=== PATIENT | male | born 1955 | race Caucasian/White ===

== ENCOUNTER → 2016-06-19 | Outpatient (CLI) | payer MEDICARE, MEDICAID ==
[~2016-06-19] MED LIST: DILANTIN 100MG100 MG PO; DILANTIN 50MG C50 MG PO; LASIX 40MG TABL40 MG PO; LORTAB 5/500 501 TAB PO; PHENOBARBITAL 330 MG PO; VENTOLIN0.09 MG IH; WARFARIN PO
== END ==
LOC: WCC 13:00
DX: T81.31XA Disruption of external operation (surgical) wound, not elsewhere classified, initial encounter (principal); G64 Other disorders of peripheral nervous system; Z85.038 Personal history of other malignant neoplasm of large intestine
CPT/HCPCS: 27515; G0463

== ENCOUNTER → 2016-07-03 | Outpatient (CLI) | payer MEDICARE, MEDICAID | LOC: WCC 10:12 | DX: T81.31XA Disruption of external operation (surgical) wound, not elsewhere classified, initial encounter (principal); L84 Corns and callosities | CPT/HCPCS: 17716; 27517; A6207; A6212; G0463 ==

== ENCOUNTER → 2016-08-26 | Outpatient (CLI) | payer MEDICARE, MEDICAID | LOC: WCC 07-24 10:27 | DX: T81.31XD Disruption of external operation (surgical) wound, not elsewhere classified, subsequent encounter (principal); Z93.3 Colostomy status | CPT/HCPCS: 27510; A6197; G0463 ==

== ENCOUNTER → 2016-08-31 | Outpatient (CLI) | payer MEDICARE, MEDICAID | LOC: WCC 12:53 | DX: K46.9 Unspecified abdominal hernia without obstruction or gangrene (principal); Z93.3 Colostomy status; C18.9 Malignant neoplasm of colon, unspecified | CPT/HCPCS: G0463 ==

== ENCOUNTER → 2017-07-07 | Outpatient (CLI) | payer MEDICARE, MEDICAID ==
[~2017-07-07] VITALS: Ht 180.3 cm; Wt 129.4 kg
[~2017-07-07] MED LIST changes: +AMARYL 2MG T2 MG/TAB; +COREG 6.256.25 MG/TA PO; +GLUCOPHAGE1000 MG PO; +LEXAPRO 10MG10 MG PO; +LOVENOX120 MG/0.8 SQ; +NEURONTIN600 MG/TAB PO; +PHENOBARBITAL32.4 MG PO; +PLAQUENIL 200M200 MG PO; +PRILOSEC 20MG20 MG PO; +PRINIVIL10 MG PO
[2017-07-07 12:09] VITALS: BP 132/67; PULSE 91
[2017-07-07 13:15] VITALS: BP 89/50; PULSE 76
[2017-07-07 13:21] VITALS: BP 94/56; PULSE 78
[2017-07-07 13:28] VITALS: BP 113/54; PULSE 77
[2017-07-07 13:42] VITALS: BP 128/63; PULSE 77
== END ==
LOC: COL.RAD 11:30
DX: C79.89 Secondary malignant neoplasm of other specified sites (principal); C18.4 Malignant neoplasm of transverse colon; E11.9 Type 2 diabetes mellitus without complications; Z79.01 Long term (current) use of anticoagulants
CPT/HCPCS: 25581

== ENCOUNTER 2018-02-15 13:27 | Emergency (ER) | payer MEDICARE, MEDICAID ==
[~2018-02-15] VITALS: Ht 180.3 cm; Wt 120.5 kg
[2018-02-15 13:43] VITALS: BP 147/71; TEMP 97.7
[2018-02-15 16:03] LABS: BASO # 0.1 (0.0-0.2); BASO % 0.7 % (0.0-2.0); EOS # 0.5 (0.0-0.7); EOS % 4.2 % (0-4.0); GRAN # 8.6 (1.4-6.5); GRAN % 73.2 % (42.2-75.2); HEMATOCRIT 40.7 % (42.0-52.0); HEMOGLOBIN 13.7 g/dl (13.5-18.0); LYMPH # 1.5 (1.2-3.4); LYMPH % 12.7 % (20.0-51.0); MEAN CELL VOLUME 101 fl (80.0-100.0); MEAN CORPUSCULAR HEMOGLOBIN 34 pg (27.0-31.0); MEAN CORPUSCULAR HGB CONC 34 g/dl (33.0-37.0); MEAN PLATELET VOLUME 9.9 fl (7.4-10.4); MONO % 8.4 % (1.7-9.3); PLATELET COUNT 193 K/mm3 (130-400); RED BLOOD COUNT 4.03 M/mm3 (4.20-5.60); REDCELL DISTRIBUTION WIDTH-CV 15.5 % (11.5-14.5)
[2018-02-15 16:15] LABS: ALBUMIN 4.2 gm/dL (3.5-5.0); BILIRUBIN,TOTAL 0.5 mg/dL (0.0-1.0); C-REACTIVE PROTEIN 2.5 mg/dL (0.0-0.9); CALCIUM 8.9 mg/dL (8.4-10.2); CREATININE, serum 0.72 mg/dL (0.66-1.25); POTASSIUM 4.2 mmol/L (3.4-5.0); TOTAL PROTEIN 7.8 gm/dL (6.4-8.2)
[2018-02-15 17:39] LABS: COLLECTION METHOD CLEAN CATCH
[2018-02-15 17:48] LABS: MUCOUS Present /lpf; PH 6 (5-8); SQUAMOUS EPITHELIAL 0-2 /hpf; URINE APPEARANCE Clear; URINE BACTERIA None Seen /hpf; URINE BILIRUBIN Negative (NEGATIVE); URINE BLOOD Negative (NEGATIVE); URINE COLOR Yellow; URINE GLUCOSE Negative (NEGATIVE); URINE KETONE Negative (NEGATIVE); URINE LEUKOCYTE ESTERASE Negative (NEGATIVE); URINE NITRATE Negative (NEGATIVE); URINE PROTEIN(semi-quant) Negative (NEGATIVE); URINE RBC 0-2 /hpf; URINE UROBILINOGEN Negative (NEGATIVE)
[2018-02-15 18:05] VITALS: PULSE 73
== END 2018-02-15 18:10 | disposition home or self-care (01) ==
LOC: COL.ER 13:27
PROVIDERS: Family Medicine
DX: E86.0 Dehydration (principal); R55 Syncope and collapse; E11.9 Type 2 diabetes mellitus without complications; I10 Essential (primary) hypertension; C18.9 Malignant neoplasm of colon, unspecified; C79.2 Secondary malignant neoplasm of skin; Z79.84 Long term (current) use of oral hypoglycemic drugs
CPT/HCPCS: J2405; J7030

== ENCOUNTER → 2019-08-11 | Outpatient (CLI) | payer MEDICARE, MEDICAID ==
[2019-08-11] VITALS (10 sets, daily range): BP systolic 86–156; BP diastolic 49–96; PULSE 59–69
[~2019-08-11] VITALS: Ht 180.3 cm; Wt 113.3 kg
[~2019-08-11] MED LIST changes: +AMARYL 2MG T2 MG/TAB PO; +DOXYCYCLINE 10100 MG PO; +ELIQUIS 5MG PO; +GLUCOPHAGE500 MG/TAB PO; +NYSTATIN CREAM15 GM TP; +ROXICODONE 55 MG/TAB PO
--- NOTE | 2019-08-11 11:35 | NUR ---
Pt to ct per wheelchair. Pt up onto ct table in supine position. Monitors applied and O2 on at 2l/nc.
--- NOTE | 2019-08-11 11:55 | NUR ---
Specimen obtained by Dr Vasquez and placed in formalin. Specimen labeled.
== END ==
LOC: COL.RAD 09:47
DX: C18.4 Malignant neoplasm of transverse colon (principal)
CPT/HCPCS: J2250; J3010